=== PATIENT | male | born 1945 | race Hispanic/Latino ===

== ENCOUNTER 2016-12-12 08:31 | Inpatient (IN) | payer MEDICARE, BC ==
[2016-12-12 08:32] VITALS: BMI 28.5
--- NOTE | 2016-12-12 09:05 | ED PDOC ---
Arrival/HPI - General Chief Complaint: Dizziness/Lightheaded Time Seen by Provider: 12/12/16 08:46 Historian: Patient - History of Present Illness Narrative History of Present Illness (Text): 12/12/16 09:00 Neto Contreras is a 71 year old male, whose past medical history includes hydrocephalus, hypertension, and polycythemia, presents to the emergency department complaining of lightheadedness and dizziness since last night. Patient reports the symptom gets worse when he sits up from laying down. He notes having these symptoms in the past. Patient denies any headache, visual changes, weakness, or numbness. Patient denies other complaints. PMD: Dr. Manley Time/Duration: Other (last night ) Symptom Onset: Sudden Symptom Course: Unchanged Modifying Factors (Text): worse when sitting up from lying down Past Medical History - Provider Review Nursing Documentation Reviewed: Yes - Infectious Disease Hx of Infectious Diseases: None - Cardiac Hx Pacemaker: No - Neurological Other/Comment: Water on brain. Pt is unsure of what condition is. - Hematological/Oncological Hx Blood Disorders: Yes Other/Comment: poly cryhemia ruberex - Musculoskeletal/Rheumatological Hx Musculoskeletal Disorders: Yes - Genitourinary/Gynecological Hx Prostate Cancer: Yes (Radiation many years ago) - Psychiatric Hx Emotional Abuse: No Hx Physical Abuse: No Hx Substance Use: No - Anesthesia Hx Anesthesia Reactions: No Hx Malignant Hyperthermia: No - Suicidal Assessment Feels Threatened In Home Enviroment: No Family/Social History - Physician Review Nursing Documentation Reviewed: Yes Family/Social History: Unknown Family HX Smoking Status: Never Smoked Hx Alcohol Use: Yes (QUIT MANY YRS AGO) Hx Substance Use: No Allergies/Home Meds Allergies/Adverse Reactions: Allergies No Known Allergies Allergy (Verified 12/12/16 08:48) Home Medications: Home Meds Medication Instructions Recorded Confirmed Aspirin [Ecotrin] 81 mg PO DAILY 01/11/16 12/12/16 Ezetimibe [Zetia] 10 mg PO QPM 01/11/16 12/12/16 Metoprolol Tartrate [Lopressor] 100 mg PO QPM 01/11/16 12/12/16 Pravastatin Sodium 40 mg PO DAILY 01/11/16 12/12/16 Review of Systems - Review of Systems Constitutional: absent: Fevers Eyes: absent: Vision Changes Respiratory: absent: SOB Cardiovascular: absent: Chest Pain Gastrointestinal: absent: Abdominal Pain Neurological: Dizziness, Other (lightheadedness). absent: Headache Physical Exam Vital Signs Reviewed: Yes Vital Signs Temp Pulse Resp BP Pulse Ox 12/12/16 09:02 98.0 F 68 17 172/70 H 100 12/12/16 08:43 97.6 F 60 18 165/83 H 97 Temperature: Afebrile Blood Pressure: Hypertensive Pulse: Regular Respiratory Rate: Normal Appearance: Positive for: Well-Appearing, Non-Toxic, Comfortable Pain Distress: None Mental Status: Positive for: Alert and Oriented X 3 - Systems Exam Head: Present: Atraumatic, Normocephalic Pupils: Present: PERRL Extroacular Muscles: Present: EOMI Conjunctiva: Present: Normal Mouth: Present: Moist Mucous Membranes Neck: Present: Normal Range of Motion Respiratory/Chest: Present: Clear to Auscultation, Good Air Exchange. No: Respiratory Distress, Accessory Muscle Use Cardiovascular: Present: Regular Rate and Rhythm, Normal S1, S2. No: Murmurs Abdomen: Present: Normal Bowel Sounds. No: Tenderness, Distention, Peritoneal Signs Upper Extremity: Present: Normal Inspection. No: Cyanosis, Edema Lower Extremity: Present: Normal Inspection. No: Edema Neurological: Present: GCS=15, CN II-XII Intact, Speech Normal, Other (sitting him up makes the dizziness become worse) Skin: Present: Warm, Dry, Normal Color. No: Rashes Psychiatric: Present: Alert, Oriented x 3, Normal Insight, Normal Concentration Medical Decision Making ED Course and Treatment: 12/12/16 Impression: 71 year old male with normal physical exam. complaints of dizziness and lightheadedness become worse when sitting him up from lying down. Differential Diagnosis included but are not limited to: hydrocephalus vs. vertigo vs. anemia Plan: -- EKG -- Chest X-ray -- CT Head -- Labs -- Reassess and disposition Progress Notes: EKG: Ordered, reviewed, and independently interpreted the EKG. Rate : 65 BPM Rhythm : NSR Interpretation : PBC's. No changes from previous EKG. Comparison : 01/11/2016 12/12/16 09:[address]: Creator : Familia Drew MD COMPARISON: Head CT without contrast 08/11/2014. FINDINGS: HEMORRHAGE: No intracranial hemorrhage. BRAIN: There is no CT evidence of any type of brain infarction at this time. No cortical edema is evident. There is no focal mass effect and there is no suspicious extra-axial collection identified. VENTRICLES: However, a persistent diffuse ventricular dilatation pattern is appreciated suggesting probable normal pressure hydrocephalus or central atrophy. Clinically correlate. CALVARIUM: Unremarkable. PARANASAL SINUSES: Unremarkable as visualized. No significant inflammatory changes. MASTOID AIR CELLS: Unremarkable as visualized. No inflammatory changes. OTHER FINDINGS: None. IMPRESSION: Persistent ventriculomegaly is seen diffusely suggesting NPH or possible central hind atrophy. Clinically correlate further. No significant interval change compared to prior CT dated 08/11/2014. 12/12/16 09:45 Chest X-ray: Creator : Jael August V. COMPARISON: 01/11/2016 FINDINGS: LUNGS: No active pulmonary disease. PLEURA: No significant pleural effusion identified, no pneumothorax apparent. Possible dense left liberty diaphragmatic pleural based scarring and/or discoid atelectasis versus a calcified pleural plaque here CARDIOVASCULAR: Mild cardiomegaly OSSEOUS STRUCTURES: Thoracic spondylosis VISUALIZED UPPER ABDOMEN: Normal. OTHER FINDINGS: None. IMPRESSION: No dense pulmonary infiltrate. Left linear basal/left liberty diaphragmatic pleural based scarring and/or discoid atelectasis. Here, possible left liberty diaphragmatic calcified pleural plaque. Mild cardiomegaly 12/12/16 10:15 Patient feeling better but still having symptoms so will place on observation med/surg. Discussed case with PMD Dr. Kraus who came to evaluate patient and agrees to observation. Patient is a fall risk with no family support at home. - Lab Interpretations Lab Results: 12/12/16 09:00 12/12/16 09:00 Lab Results 12/12/16 09:44: Blood Type Pending, Antibody Screen Pending, BBK History Checked No verified bt 12/12/16 09:00: Sodium 141, Potassium 4.1, Chloride 104, Carbon Dioxide 24, Anion Gap 17, BUN 22 H, Creatinine 0.9, Est GFR ( Amer) > 60, Est GFR ( Non-Af Amer) > 60, Random Glucose 123 H, Calcium 9.2, Total Bilirubin 0.7, AST 24, ALT 32, Alkaline Phosphatase 62, Troponin I < 0.01, Total Protein 7.0, Albumin 4.2, Globulin 2.8, Albumin/Globulin Ratio 1.5 12/12/16 09:00: PT 10.8, INR 1.00, APTT 26.5 12/12/16 09:00: WBC 5.4, RBC 5.21, Hgb 16.3, Hct 45.8, MCV 87.9, MCH 31.3, MCHC 35.6, RDW 13.3, Plt Count 165, MPV 9.8, Gran % 74.9 H, Lymph % (Auto) 16.4 L, [place] % (Auto) 7.4 H, Eos % (Auto) 0.7 L, Baso % (Auto) 0.6, Gran # 4.02, Lymph # 0.9 L, [place] # 0.4, Eos # 0.0, Baso # 0.03 - RAD Interpretation Radiology Orders: 12/12/16 08:55 CHEST PORTABLE [RAD] Stat 12/12/16 08:56 HEAD W/O CONTRAST [CT] 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 I have reviewed the chart and agree that the record accurately reflects my personal performance of the history, physical exam, medical decision making, and the department course for this patient. I have also personally directed, reviewed, and agree with the discharge instructions and disposition. Disposition/Present on Arrival - Present on Arrival Any Indicators Present on Arrival: No History of DVT/PE: No History of Uncontrolled Diabetes: No Urinary Catheter: No History of Decub. Ulcer: No History Surgical Site Infection Following: None - Disposition Have Diagnosis and Disposition been Completed?: Yes Diagnosis: Dizziness Disposition: HOME/ ROUTINE Disposition Time: 10:16 Patient Plan: Observation Condition: FAIR Referrals: Indu Manley MD [Primary Care Provider] - Follow up with primary Forms: [employer] ([place])
[2016-12-12 09:25] LABS: BASO # 0.03 K/mm3 (0.0-2.0); BASO % 0.6 % (0.0-3.0); EOS % 0.7 % (1.5-5.0); GRAN # 4.02 (1.4-6.5); GRAN % 74.9 % (50.0-68.0); HEMATOCRIT 45.8 % (42.0-52.0); LYMPH # 0.9 (1.2-3.4); LYMPH % 16.4 % (22.0-35.0); MEAN CELL VOLUME 87.9 fl (80.0-105.0); MEAN CORPUSCULAR HEMOGLOBIN 31.3 pg (25.0-35.0); MEAN CORPUSCULAR HGB CONC 35.6 g/dl (31.0-37.0); MEAN PLATELET VOLUME 9.8 fl (7.0-11.0); MONO # 0.4 (0.1-0.6); MONO % 7.4 % (1.0-6.0); RED CELL DISTRIBUTION WIDTH 13.3 % (11.5-14.5); WHITE BLOOD COUNT 5.4 10^3/ul (4.5-11.0)
[2016-12-12 09:28] LABS: ALB/GLOB RATIO 1.5 (1.1-1.8); ALKALINE PHOSPHATASE 62 U/L (38-126); ALT/SGPT 32 U/L (7-56); AST/SGOT 24 U/L (17-59); BILIRUBIN,TOTAL 0.7 mg/dL (0.2-1.3); BLOOD UREA NITROGEN 22 mg/dL (7-21); CALCIUM 9.2 mg/dL (8.4-10.5); CARBON DIOXIDE 24 mmol/L (21-33); CHLORIDE 104 mmol/L (98-107); GFR AFRICAN-AMERICAN > 60; GLUCOSE,RANDOM 123 mg/dL (70-110); POTASSIUM 4.1 mmol/L (3.6-5.0); SODIUM 141 mmol/L (132-148)
--- NOTE | 2016-12-12 09:28 | CT ---
PROCEDURE: CT HEAD WITHOUT CONTRAST. HISTORY: lightheadedness/dizziness h/o hydroceph COMPARISON: Head CT without contrast 08/11/2014. TECHNIQUE: Axial computed tomography images were obtained through the head/brain without intravenous contrast. Radiation dose: Total exam DLP = 774.23 mGy-cm. This CT exam was performed using one or more of the following dose reduction techniques: Automated exposure control, adjustment of the mA and/or kV according to patient size, and/or use of iterative reconstruction technique. FINDINGS: HEMORRHAGE: No intracranial hemorrhage. BRAIN: There is no CT evidence of any type of brain infarction at this time. No cortical edema is evident. There is no focal mass effect and there is no suspicious extra-axial collection identified. VENTRICLES: However, a persistent diffuse ventricular dilatation pattern is appreciated suggesting probable normal pressure hydrocephalus or central atrophy. Clinically correlate. CALVARIUM: Unremarkable. PARANASAL SINUSES: Unremarkable as visualized. No significant inflammatory changes. MASTOID AIR CELLS: Unremarkable as visualized. No inflammatory changes. OTHER FINDINGS: None. IMPRESSION: Persistent ventriculomegaly is seen diffusely suggesting NPH or possible central hind atrophy. Clinically correlate further. No significant interval change compared to prior CT dated 08/11/2014.
[2016-12-12 09:31] LABS: PARTIAL THROMBOPLASTIN TIME 26.5 Seconds (23.7-30.8)
[2016-12-12 09:39] LABS: TROPONIN I < 0.01 ng/mL
--- NOTE | 2016-12-12 09:42 | RAD ---
HISTORY: lightheadedness COMPARISON: 01/11/2016 FINDINGS: LUNGS: No active pulmonary disease. PLEURA: No significant pleural effusion identified, no pneumothorax apparent. Possible dense left liberty diaphragmatic pleural based scarring and/or discoid atelectasis versus a calcified pleural plaque here CARDIOVASCULAR: Mild cardiomegaly OSSEOUS STRUCTURES: Thoracic spondylosis VISUALIZED UPPER ABDOMEN: Normal. OTHER FINDINGS: None. IMPRESSION: No dense pulmonary infiltrate. Left linear basal/left liberty diaphragmatic pleural based scarring and/or discoid atelectasis. Here, possible left liberty diaphragmatic calcified pleural plaque Mild cardiomegaly
--- NOTE | 2016-12-12 11:35 | CARD ---
APPROVED REPORT EKG Measurement Heart [id number] <Conclusion> Sinus rhythm with occasional premature ventricular complexes Otherwise normal ECG
--- NOTE | 2016-12-12 11:40 | CP.PCM.HP ---
History of Present Illness - History of Present Illness History of Present Illness: This is a 71 year old male with history of hypertension, hyperlipidemia, polycythemia vera and normal pressure hydrocephalus who presented to the Emergency Room with dizziness. Patient says he began feeling dizzy and lightheaded last night. When he woke up this morning, he was still feeling dizzy and lightheaded so he came to the ER. He denies numbness, tingling, weakness or slurred speech. Present on Admission - Present on Admission Any Indicators Present on Admission: No History of DVT/PE: No History of Uncontrolled Diabetes: No Urinary Catheter: No Decubitus Ulcer Present: No Review of Systems - Constitutional Constitutional: absent: Chills, Fever, Headache - EENT Nose/Mouth/Throat: absent: Nasal Congestion, Nasal Discharge, Hoarsness - Cardiovascular Cardiovascular: absent: Chest Pain, Diaphoresis, Dyspnea - Respiratory Respiratory: absent: Cough, Dyspnea, Wheezing - Gastrointestinal Gastrointestinal: Nausea. absent: Abdominal Pain, Diarrhea - Neurological Neurological: As Per HPI Past Patient History - Infectious Disease Hx of Infectious Diseases: None - Past Medical History & Family History Past Medical History?: Yes Past Family History: Reviewed and not pertinent - Past Social History Smoking Status: Never Smoked Alcohol: None Drugs: Denies Home Situation {Lives}: Alone - CARDIAC Hx Hypercholesterolemia: Yes Hx Hypertension: Yes Hx Pacemaker: No - NEUROLOGICAL Other/Comment: Normal pressure hydrocephalus - HEMATOLOGICAL/ONCOLOGICAL Hx Blood Disorders: Yes (Polycythemia Vera) Other/Comment: poly cryhemia ruberex - MUSCULOSKELETAL/RHEUMATOLOGICAL Hx Musculoskeletal Disorders: Yes Hx Arthritis: Yes - GENITOURINARY/GYNECOLOGICAL Hx Prostate Cancer: Yes (Radiation many years ago) - PSYCHIATRIC Hx Emotional Abuse: No Hx Physical Abuse: No Hx Substance Use: No - SURGICAL HISTORY Hx Surgeries: Yes (L FOOT BUNIONECTOMY, R EYE CATARACT;) Hx Herniorrhaphy: Yes - ANESTHESIA Hx Anesthesia Reactions: No Hx Malignant Hyperthermia: No Meds Allergies/Adverse Reactions: Allergies Allergy/AdvReac Type Severity Reaction Status Date / Time No Known Allergies Allergy Verified 12/12/16 08:48 Physical Exam - Constitutional Appears: No Acute Distress - Head Exam Head Exam: ATRAUMATIC, NORMOCEPHALIC - Neck Exam Neck exam: Positive for: Normal Inspection - Respiratory Exam Respiratory Exam: Clear to Auscultation Bilateral, NORMAL BREATHING PATTERN - Cardiovascular Exam Cardiovascular Exam: REGULAR RHYTHM, +S1, +S2 - GI/Abdominal Exam GI & Abdominal Exam: Normal Bowel Sounds, Soft. absent: Tenderness - Extremities Exam Extremities exam: Positive for: normal inspection - Neurological Exam Neurological exam: Alert, CN II-XII Intact, Oriented x3 Results - Vital Signs Recent Vital Signs: Last Vital Signs Temp 98.0 F 12/12/16 09:02 Pulse 68 12/12/16 09:02 Resp 17 12/12/16 09:02 BP 172/70 H 12/12/16 09:02 Pulse Ox 100 12/12/16 09:02 - Labs Result Diagrams: 12/12/16 09:00 12/12/16 09:00 Assessment & Plan - Assessment and Plan (Free Text) Assessment: Dizziness Polycythemia Vera HTN/HLP Normal pressure hydrocephalus Plan: Patient will be placed in observation for dizziness. He still complains of dizziness. Meclizine will be given and the patient will be observed for further dizziness or lightheadedness. continue Metoprolol for hypertension. continue Zetia for hyperlipidemia. Patient will be on a 2 gm sodium diet.
[2016-12-12] MEDS ORDERED: Pneumococcal 23-Valent Vaccine IM ONE (13:25)
--- NOTE | 2016-12-13 08:04 | CP.PCM.PN ---
Subjective - Date & Time of Evaluation Date of Evaluation: 12/13/16 Time of Evaluation: 07:35 - Subjective Subjective: Patient is seen this morning. He complains of dizziness. Denies numbness or tingling. Objective - Vital Signs/Intake and Output Vital Signs (last 24 hours): Temp Pulse Resp BP Pulse Ox 98 F 68 17 172/70 H 100 12/12/16 13:14 12/12/16 13:14 12/12/16 13:14 12/12/16 13:14 12/12/16 09:02 Intake and Output: 12/13/16 12/13/16 06:59 18:59 Intake Total 900 Output Total 650 Balance 250 - Medications Medications: Current Medications Aspirin (Ecotrin) 81 mg PO DAILY [facility] Ezetimibe (Zetia) 10 mg PO DAILY [facility] Meclizine HCl (Antivert) 25 mg PO TID [facility] Last Admin: 12/12/16 17:40 Dose: 25 mg Metoprolol Succinate (Toprol Xl) 100 mg PO BRK [facility] - Labs Labs: PT 10.8 Seconds (9.9-11.8) 12/12/16 09:00 INR 1.00 (0.93-1.08) 12/12/16 09:00 APTT 26.5 Seconds (23.7-30.8) 12/12/16 09:00 - Constitutional Appears: No Acute Distress - Head Exam Head Exam: ATRAUMATIC, NORMOCEPHALIC - Respiratory Exam Respiratory Exam: Clear to Ausculation Bilateral, NORMAL BREATHING PATTERN - Cardiovascular Exam Cardiovascular Exam: +S1, +S2 - GI/Abdominal Exam GI & Abdominal Exam: Soft, Normal Bowel Sounds. absent: Tenderness - Neurological Exam Neurological Exam: Alert, Awake, Oriented x3 Assessment and Plan - Assessment and Plan (Free Text) Assessment: Dizziness Normal pressure hydrocephalus HTN HLP Arthritis Polycythemia vera Plan: Patient still complaining of dizziness. Will check EEG, MRI Brain and order neurology consult with Dr. Oliver. continue Meclizine continue Metoprolol for hypertension. 2gm sodium diet
[2016-12-13] MEDS: Metoprolol Succinate 100 mg XL Tab PO SCH (08:09)
[2016-12-13 09:01] VITALS: RESP 20
[2016-12-13] MEDS ORDERED: Gadodiamide 287 MG/ML VIAL (15ML) IV ONE (09:08)
--- NOTE | 2016-12-13 11:10 | CP.PCM.CON ---
<Rebekah Donovan - Last Filed: 12/13/16 10:59> History of Present Illness - History of Present Illness History of Present Illness: Neurology Consult Note for Vladimir Desai PGY2 Reason for consult: Dizziness This is a 71YM with PMH normal pressure hydrocephalus, HTN, HLD, and polycythemia vera who complains of dizziness x 1 day. He reports on Saturday, he went out to dinner and came home and was sitting in his recliner. When he stood up he began to feel dizzy. He described it as lightheaded with the room spinning. He felt unsteady on his feet at the time. He did not fall or hit his head. He denies having any vision changes, numbness/tingling, headache, incontinence (urinary or bowel), weakness, CP, SOB, fever or chills. This has not happened before. He was given Meclizine in the hospital which relieves his symptoms. Patient denies any dizziness with certain head movements. He is very active and walks every day. Patient is very alert and A&O x 3. He has never seen a neurologist for his NPH, but denies having any trouble walking, urinary incontinence or confusion. PMH: normal pressure hydrocephalus, HTN, HLD, and polycythemia vera PSH: bilateral hernia repair 2016, cataract repair R eye Home meds: As per MAY All: NKDA SH: Denies EtOH, tobacco or drug use. Lives at a senior facility Review of Systems - Constitutional Constitutional: absent: Chills, Fever - EENT Eyes: absent: Change in Vision, Loss of Vision Ears: Dizziness. absent: Decreased Hearing, Disequilibrium Nose/Mouth/Throat: absent: Dysphagia, Odynophagia - Cardiovascular Cardiovascular: absent: Chest Pain - Respiratory Respiratory: absent: Cough, Dyspnea, Hemoptysis - Gastrointestinal Gastrointestinal: absent: Abdominal Pain, Change in Stool Character, Nausea, Vomiting - Genitourinary Genitourinary: absent: Change in Urinary Stream, Difficulty Urinating, Dysuria, Hematuria, Pyuria - Musculoskeletal Musculoskeletal: absent: Abnormal Gait, Back Pain, Myalgias, Numbness, Stiffness , Tingling - Integumentary Integumentary: absent: Change in Hair, Changing Lesions - Neurological Neurological: Dizziness, Vertigo. absent: Abnormal Gait, Abnormal Speech, Behavioral Changes, Confusion, Numbness, Frequent Falls, Loss of Vision, Sensory Deficit, Syncope, Weakness - Psychiatric Psychiatric: absent: Anxiety, Depression Past Patient History - Infectious Disease Hx of Infectious Diseases: None - Past Medical History & Family History Past Medical History?: Yes Past Family History: Reviewed and not pertinent - Past Social History Smoking Status: Never Smoked Alcohol: None Drugs: Denies Home Situation {Lives}: Alone, Other (senior facility ) - CARDIAC Hx Hypercholesterolemia: Yes Hx Hypertension: Yes Hx Pacemaker: No - NEUROLOGICAL Hx Neurological Disorder: Yes (stutters at times "when nervous") Other/Comment: Normal pressure hydrocephalus - HEENT Hx HEENT Problems: Yes (eyeglasses for reading and distance) Hx Cataracts: Yes (right eye sx, left eye not ready) - HEMATOLOGICAL/ONCOLOGICAL Hx Blood Disorders: Yes (Polycythemia rubra vera) Hx Chemotherapy: Yes (prostate "yrs ago" had radiation) - MUSCULOSKELETAL/RHEUMATOLOGICAL Hx Falls: No - GENITOURINARY/GYNECOLOGICAL Hx Prostate Cancer: Yes (Radiation many years ago) - PSYCHIATRIC Hx Substance Use: No - SURGICAL HISTORY Hx Surgeries: Yes (L FOOT BUNIONECTOMY, R EYE CATARACT;) Other/Comment: b/l inguinal hernia sx 01/2016, prostate bx, colonoscopy x3 - ANESTHESIA Hx Anesthesia Reactions: No Hx Malignant Hyperthermia: No Meds Allergies/Adverse Reactions: Allergies Allergy/AdvReac Type Severity Reaction Status Date / Time No Known Allergies Allergy Verified 12/12/16 08:48 - Medications Medications: Current Medications Aspirin (Ecotrin) 81 mg PO DAILY [facility] Last Admin: 12/13/16 09:41 Dose: 81 mg Ezetimibe (Zetia) 10 mg PO DAILY [facility] Meclizine HCl (Antivert) 25 mg PO TID [facility] Last Admin: 12/13/16 09:41 Dose: 25 mg Metoprolol Succinate (Toprol Xl) 100 mg PO BRK [facility] Last Admin: 12/13/16 08:09 Dose: 100 mg Physical Exam - Constitutional Appears: No Acute Distress - Head Exam Head Exam: ATRAUMATIC, NORMAL INSPECTION, NORMOCEPHALIC - Eye Exam Eye Exam: EOMI, Normal appearance, PERRL Pupil Exam: NORMAL ACCOMODATION, PERRL - ENT Exam ENT Exam: Mucous Membranes Moist, Normal Exam - Neck Exam Neck exam: Positive for: Normal Inspection - Respiratory Exam Respiratory Exam: Clear to Auscultation Bilateral, NORMAL BREATHING PATTERN. absent: Rales, Rhonchi, Wheezes - Cardiovascular Exam Cardiovascular Exam: REGULAR RHYTHM, +S1, +S2. absent: Gallop, Rubs, Systolic Murmur - GI/Abdominal Exam GI & Abdominal Exam: Normal Bowel Sounds, Soft. absent: Guarding, Rebound, Rigid, Tenderness - Extremities Exam Extremities exam: Positive for: normal inspection. Negative for: calf tenderness, pedal edema - Neurological Exam Neurological exam: Alert, CN II-XII Intact, Normal Gait, Oriented x3 - Psychiatric Exam Psychiatric exam: Normal Affect, Normal Mood - Skin Skin Exam: Dry, Intact, Normal Color, Warm Results - Vital Signs Recent Vital Signs: Last Vital Signs Temp 97.6 F 12/13/16 09:00 Pulse 52 L 12/13/16 09:00 Resp 20 12/13/16 09:00 BP 157/78 H 12/13/16 09:00 Pulse Ox 97 12/13/16 09:00 - Labs Result Diagrams: 12/12/16 09:00 12/12/16 09:00 Assessment & Plan - Assessment and Plan (Free Text) Assessment: This is a 71YM with PMH normal pressure hydrocephalus, HTN, HLD, and polycythemia vera who complains of dizziness x 1 day that is associated with sitting up from standing that is relieved by Meclizine. This can be secondary to orthostatic hypotension versus vertigo. It is unlikely this is secondary to NPH because there is no evidence of confusion, gait dysfunction or urinary incontinence. Head CT showed persistent ventriculomegaly, but no change when compared to previous imaging in 2015. Plan: - Will review brain MRI. - Meclizine prn - Will obtain orthostatics - Physical therapy - Vestibular therapy Case seen, discussed and reviewed with attending, Dr. Oliver. Vladimir Donovan PGY2 - Date & Time Date: 12/13/16 Time: 11:20 <Valentín Oliver - Last Filed: 12/13/16 12:08> Meds - Medications Medications: Current Medications Aspirin (Ecotrin) 81 mg PO DAILY [facility] Last Admin: 12/13/16 09:41 Dose: 81 mg Ezetimibe (Zetia) 10 mg PO DAILY [facility] Meclizine HCl (Antivert) 25 mg PO TID [facility] Last Admin: 12/13/16 09:41 Dose: 25 mg Metoprolol Succinate (Toprol Xl) 100 mg PO BRK [facility] Last Admin: 12/13/16 08:09 Dose: 100 mg Results - Vital Signs Recent Vital Signs: Last Vital Signs Temp 97.6 F 12/13/16 09:00 Pulse 52 L 12/13/16 09:00 Resp 20 12/13/16 09:00 BP 157/78 H 12/13/16 09:00 Pulse Ox 97 12/13/16 09:00 - Labs Result Diagrams: 12/12/16 09:00 12/12/16 09:00 Attending/Attestation - Attestation I have personally seen and examined this patient.: Yes I have fully participated in the care of the patient.: Yes I have reviewed all pertinent clinical information: Yes
--- NOTE | 2016-12-13 15:06 | MRI ---
PROCEDURE: MRI BRAIN WITH AND WITHOUT CONTRAST HISTORY: dizziness COMPARISON: Head CT 12/12/2016 as well as brain MRI 08/30/2014. TECHNIQUE: Multiplanar, multisequence MR images of the brain were obtained with and without intravenous contrast enhancement. FINDINGS: HEMORRHAGE: None DWI: No evidence of an acute or early subacute infarction. BRAIN PARENCHYMA: Age related neuro degenerate changes are again appreciated manifest by diffuse cerebral atrophy and limited chronic microangiopathy. The ventricular system remains diffusely dilated suspicious for potential communicating hydrocephalus. Normal changes appreciated in the overall ventricular volume. ENHANCEMENT: No abnormal intracranial enhancement. VENTRICLES: As discussed in parenchyma section above. CRANIUM: Unremarkable. ORBITS: Grossly unremarkable. PARANASAL SINUSES/MASTOIDS: Clear VASCULAR SYSTEM: Skull base flow voids intact. OTHER FINDINGS: None . IMPRESSION: 1. A dilated ventricular system is again seen diffusely suggesting normal pressure hydrocephalus or central atrophy. 2. No abnormal intracranial enhancement. 3. Stable age related neuro degenerate changes are identified.
[2016-12-13 17:46] VITALS: BP 178/99; PULSE 58; TEMP 97; O2SAT 98
--- NOTE | 2016-12-14 06:48 | CP.PCM.PN ---
<Rebekah Donovan - Last Filed: 12/14/16 11:12> Subjective - Date & Time of Evaluation Date of Evaluation: 12/14/16 Time of Evaluation: 06:45 - Subjective Subjective: Neurology Progress Note for Vladimir Desai PGY2 Patient seen and examined at bedside. As per nursing, there were no acute overnight events. Patient feels well today. He reports his dizziness has improved. He denies CP, SOB, vision changes, weakness, vertigo, n/v/d, numbness/ tingling. Objective - Vital Signs/Intake and Output Vital Signs (last 24 hours): Temp Pulse Resp BP Pulse Ox 97 F L 58 L 20 178/99 H 98 12/13/16 17:45 12/13/16 17:45 12/13/16 17:45 12/13/16 17:45 12/13/16 17:45 Intake and Output: 12/13/16 12/14/16 18:59 06:59 Intake Total 540 Balance 540 - Medications Medications: Current Medications Aspirin (Ecotrin) 81 mg PO DAILY [facility] Last Admin: 12/13/16 09:41 Dose: 81 mg Atorvastatin Calcium (Lipitor) 40 mg PO DIN [facility] Last Admin: 12/13/16 17:11 Dose: 40 mg Ezetimibe (Zetia) 10 mg PO DAILY [facility] Last Admin: 12/13/16 17:11 Dose: 10 mg Meclizine HCl (Antivert) 25 mg PO TID [facility] Last Admin: 12/13/16 17:12 Dose: 25 mg Metoprolol Succinate (Toprol Xl) 100 mg PO BRK [facility] Last Admin: 12/13/16 08:09 Dose: 100 mg - Labs Labs: PT 10.8 Seconds (9.9-11.8) 12/12/16 09:00 INR 1.00 (0.93-1.08) 12/12/16 09:00 APTT 26.5 Seconds (23.7-30.8) 12/12/16 09:00 - Constitutional Appears: No Acute Distress - Head Exam Head Exam: ATRAUMATIC, NORMAL INSPECTION, NORMOCEPHALIC - Eye Exam Eye Exam: EOMI, Normal appearance, PERRL Pupil Exam: NORMAL ACCOMODATION, PERRL - ENT Exam ENT Exam: Mucous Membranes Moist - Neck Exam Neck Exam: Full ROM - Respiratory Exam Respiratory Exam: Clear to Ausculation Bilateral, NORMAL BREATHING PATTERN. absent: Rales, Rhonchi, Wheezes - Cardiovascular Exam Cardiovascular Exam: REGULAR RHYTHM, +S1, +S2. absent: Gallop, Rubs, Murmur - GI/Abdominal Exam GI & Abdominal Exam: Soft, Normal Bowel Sounds. absent: Rigid, Tenderness, Mass , Rebound - Extremities Exam Extremities Exam: Normal Inspection. absent: Calf Tenderness, Pedal Edema - Neurological Exam Neurological Exam: Alert, Awake, CN II-XII Intact, Normal Gait, Oriented x3 Neuro motor strength exam: Left Upper Extremity: 5, Right Upper Extremity: 5, Left Lower Extremity: 5, Right Lower Extremity: 5 - Psychiatric Exam Psychiatric exam: Normal Affect, Normal Mood - Skin Skin Exam: Dry, Intact, Normal Color, Warm Assessment and Plan - Assessment and Plan (Free Text) Assessment: This is a 71YM with PMH normal pressure hydrocephalus, HTN, HLD, and polycythemia vera who complains of dizziness x 1 day that is associated with sitting up from standing that is relieved by Meclizine. This can be secondary to orthostatic hypotension versus vertigo. It is unlikely this is secondary to NPH because there is no evidence of confusion, gait dysfunction or urinary incontinence. Head CT showed persistent ventriculomegaly, but no change when compared to previous imaging in 2015. MRI was noted to showed diffusely dilated ventricular system suggesting NPH versus central atrophy. Orthostatic vitals noted to be negative. Plan: - Neurosurgery consulted - Continue Meclizine prn - Continue Physical therapy as well as vestibular therapy as outpatient Case seen, discussed and reviewed with attending, Dr. Oliver. Vladimir Donovan PGY2 <Valentín Oliver - Last Filed: 12/14/16 13:08> Objective - Vital Signs/Intake and Output Vital Signs (last 24 hours): Temp Pulse Resp BP Pulse Ox 97 F L 58 L 20 178/99 H 98 12/13/16 17:45 12/13/16 17:45 12/13/16 17:45 12/13/16 17:45 12/13/16 17:45 Intake and Output: 12/14/16 12/14/16 06:59 18:59 Intake Total 540 Balance 540 - Medications Medications: Current Medications Amlodipine Besylate (Norvasc) 5 mg PO DAILY [facility] Last Admin: 12/14/16 09:18 Dose: 5 mg Aspirin (Ecotrin) 81 mg PO DAILY [facility] Last Admin: 12/14/16 09:18 Dose: 81 mg Atorvastatin Calcium (Lipitor) 40 mg PO DIN [facility] Last Admin: 12/13/16 17:11 Dose: 40 mg Ezetimibe (Zetia) 10 mg PO DAILY [facility] Last Admin: 12/14/16 09:18 Dose: 10 mg Meclizine HCl (Antivert) 25 mg PO TID PRN PRN Reason: Dizziness Metoprolol Tartrate (Lopressor) 50 mg PO BRK [facility] Last Admin: 12/14/16 09:18 Dose: 50 mg - Labs Labs: PT 10.8 Seconds (9.9-11.8) 12/12/16 09:00 INR 1.00 (0.93-1.08) 12/12/16 09:00 APTT 26.5 Seconds (23.7-30.8) 12/12/16 09:00 Attending/Attestation - Attestation I have personally seen and examined this patient.: Yes I have fully participated in the care of the patient.: Yes I have reviewed all pertinent clinical information, including history, physical exam and plan: Yes
[2016-12-14] MEDS: Metoprolol Succinate 100 mg XL Tab PO SCH (09:06)
--- NOTE | 2016-12-14 12:46 | CP.PCM.CON ---
History of Present Illness - History of Present Illness History of Present Illness: pt has no gait dysfunctiom no urinary incontinence mild ventriculomegaly , prob atrophy related- unchanged rfrom 2015 would not rec csf diversion Past Patient History - Infectious Disease Hx of Infectious Diseases: None - Past Medical History & Family History Past Medical History?: Yes Past Family History: Reviewed and not pertinent - Past Social History Smoking Status: Never Smoked Alcohol: None Drugs: Denies Home Situation {Lives}: Alone, Other (senior facility ) - CARDIAC Hx Hypercholesterolemia: Yes Hx Hypertension: Yes Hx Pacemaker: No - NEUROLOGICAL Hx Neurological Disorder: Yes (stutters at times "when nervous") Other/Comment: Normal pressure hydrocephalus - HEENT Hx HEENT Problems: Yes (eyeglasses for reading and distance) Hx Cataracts: Yes (right eye sx, left eye not ready) - HEMATOLOGICAL/ONCOLOGICAL Hx Blood Disorders: Yes (Polycythemia rubra vera) Hx Chemotherapy: Yes (prostate "yrs ago" had radiation) - MUSCULOSKELETAL/RHEUMATOLOGICAL Hx Falls: No - GENITOURINARY/GYNECOLOGICAL Hx Prostate Cancer: Yes (Radiation many years ago) - PSYCHIATRIC Hx Substance Use: No - SURGICAL HISTORY Hx Surgeries: Yes (L FOOT BUNIONECTOMY, R EYE CATARACT;) Other/Comment: b/l inguinal hernia sx 01/2016, prostate bx, colonoscopy x3 - ANESTHESIA Hx Anesthesia Reactions: No Hx Malignant Hyperthermia: No Meds Allergies/Adverse Reactions: Allergies Allergy/AdvReac Type Severity Reaction Status Date / Time No Known Allergies Allergy Verified 12/12/16 08:48 - Medications Medications: Current Medications Amlodipine Besylate (Norvasc) 5 mg PO DAILY [facility] Last Admin: 12/14/16 09:18 Dose: 5 mg Aspirin (Ecotrin) 81 mg PO DAILY [facility] Last Admin: 12/14/16 09:18 Dose: 81 mg Atorvastatin Calcium (Lipitor) 40 mg PO DIN [facility] Last Admin: 12/13/16 17:11 Dose: 40 mg Ezetimibe (Zetia) 10 mg PO DAILY [facility] Last Admin: 12/14/16 09:18 Dose: 10 mg Meclizine HCl (Antivert) 25 mg PO TID PRN PRN Reason: Dizziness Metoprolol Tartrate (Lopressor) 50 mg PO BRK [facility] Last Admin: 12/14/16 09:18 Dose: 50 mg Results - Vital Signs Recent Vital Signs: Last Vital Signs Temp 97 F L 12/13/16 17:45 Pulse 58 L 12/13/16 17:45 Resp 20 12/13/16 17:45 BP 178/99 H 12/13/16 17:45 Pulse Ox 98 12/13/16 17:45 - Labs Result Diagrams: 12/12/16 09:00 12/12/16 09:00
--- NOTE | 2016-12-14 13:39 | PN ---
DATE: SUBJECTIVE: The patient is seen in the [facility] in [place], admitted with severe dizziness and the patient had some unstable gait at that time. Just 2 days ago, the patient was admitted in the hospital for further evaluation and treatment. The patient has past history of hypertension and hyperlipidemia. The patient has history of normal pressure hydrocephalus. The patient also has history of secondary polycythemia, for which the patient has bloodletting frequently as needed. The patient is seen this morning, seem to be comfortable and he has no evidence of any dizziness while sitting in the bed. We will get the patient to ambulate and if his condition is stable, the patient will be able to be discharged and go home. PHYSICAL EXAMINATION VITAL SIGNS: This morning, the pulse is 58, blood pressure is 178/99, respirations are 20, O2 saturation 98%, and temperature 97. HEENT: The patient's head is normocephalic. NECK: On clinical examination of the patient's neck, the thyroid is not enlarged. No lymphadenopathy in the neck. Carotid pulses are present bilaterally. HEART: NSR. S1 and S2 present. ABDOMEN: Soft. Liver and spleen not palpable. CENTRAL NERVOUS SYSTEM: The patient is conscious, rational, oriented. The patient's cranial nerves are intact from II to XII. Sensory hearing is good. The patient's cerebellar functions are within normal limits. Motor and sensory functions and reflexes are within normal limits. LABORATORY DATA: The patient's blood work, hemoglobin is 16.3. The patient has a history of polycythemia as mentioned earlier. The patient is under the care of Dr. Gallegos, his oncologist, who takes his blood frequently in order to keep his hemoglobin under the level. The patient's chemistry, blood sugar is 123, , BUN is 22. All other chemical parameters are within normal limits. PLAN: The patient is able to ambulate well with help, but we are going to give the patient independence and if he feels stable and able to walk around and feel comfortable, then the patient can go home with Antivert 12.5 mg three times a day for dizziness. The consideration of neurosurgical evaluation is abandoned at this time. The patient I do not think needs to have a ventriculoperitoneal shunt placed at this time. If there is a need for any further management, we will refer the patient to the appropriate wireless sales consultant after discharge. His prognosis is clinically good at this time. He is stable with all his medications. His blood pressure is well controlled. His medications consist of Antivert three times a day and Lipitor which is 40 mg. When the patient goes home, he will take simvastatin and pravastatin that he was on. He will be on metoprolol 100 mg once daily. He is on Zetia 10 mg daily. The patient's medications will be continued. The patient has an EKG done in the hospital. The heart rate is 65 and the patient's QT interval is within normal range. Marisel Manley MD
[2016-12-14] MEDS ORDERED: Non Formulary Medication (Metoprolol Tartrate [Lopressor] 100 MG) PO SCH (18:00)
[2016-12-14] MEDS ORDERED: PRAVASTATIN SODIUM 40 MG PO SCH (22:00)
--- NOTE | 2016-12-15 08:28 | CARD ---
APPROVED REPORT EKG Measurement Heart [id number] <Conclusion> Sinus bradycardia Otherwise normal ECG No PVC's c/w ECG 12/12/16
--- NOTE | 2016-12-16 10:28 | DS ---
HISTORY AND HOSPITAL COURSE: This is a 71-year-old male with a history of hypertension, hyperlipidemia with polycythemia vera and normal pressure hydrocephalus who presented to the emergency room of [facility] with dizziness. The patient stated that he had felt dizzy and lightheaded since the previous night. He woke up in the morning and still felt dizzy, so he came to the emergency room. He denied numbness, tingling, weakness or slurred speech. The patient was placed on the general medical floor after dizziness. He was started on meclizine 25 mg three times a day. He was continued on his metoprolol for blood pressure, Zetia and statin for hyperlipidemia and 2 g sodium diet. The next day the patient continued to have dizziness, so an MRI of the brain was ordered as well as an EEG and neurology consult with Dr. Oliver. MRI showed age-related neurodegenerative changes, diffuse cerebral atrophy and diffusely dilated ventricular systems, suspicious for communicating hydrocephalus. There was no change from previous MRI. The patient was also seen by neurosurgery who did not recommend any surgery. By the next day, the patient's dizziness was resolved. He was discharged home in stable condition. DISCHARGE DIAGNOSES: Dizziness, hydrocephalus, hypertension, hyperlipidemia and polycythemia vera. DISCHARGE MEDICATIONS: Metoprolol 100 mg once a day, pravastatin 40 mg at night, Zetia 10 mg daily, aspirin 81 mg daily, Antivert 25 mg three times a day as needed for dizziness. FOLLOWUP: The patient will follow up in the office in 1 week. Chelly Manley MD
== END 2016-12-14 16:15 | disposition home or self-care (01) | DRG 312 ==
LOC: ED 08:31 → ERH 10:12 → 3RSO 14:01 → OBSVTOIN 12-13 08:05
PROVIDERS: ADMIT Internal Medicine; ATTEND Internal Medicine
DX: I95.1 Orthostatic hypotension (principal); G91.2 (Idiopathic) normal pressure hydrocephalus; D45 Polycythemia vera; R42 Dizziness and giddiness; I10 Essential (primary) hypertension; G93.89 Other specified disorders of brain; E78.00 Pure hypercholesterolemia, unspecified; M19.90 Unspecified osteoarthritis, unspecified site; Z85.46 Personal history of malignant neoplasm of prostate; Z91.81 History of falling; Z79.82 Long term (current) use of aspirin

== ENCOUNTER 2018-06-01 10:45 | Inpatient (IN) | payer MEDICARE, BC ==
[2018-06-01 10:49] VITALS: BMI 28.8
[2018-06-01] MEDS ORDERED: Sodium Chloride 0.9% 500 ML IV STA (10:58)
--- NOTE | 2018-06-01 11:02 | ED PDOC ---
Arrival/HPI - General Chief Complaint: Dizziness/Lightheaded Time Seen by Provider: 06/01/18 10:48 Historian: Patient - History of Present Illness Narrative History of Present Illness (Text): 06/01/18 11:00 A 72 year old male, whose past medical history includes hydrocephalus, hypertension, and polycythemia, presents to the emergency department complaining of dizziness upon waking up this morning. He describes symptom as "room-spinning sensation." Patient reports he's had a similar episode 18 months ago and was diagnosed with vertigo. He stated he ate a ham sandwich this morning and began having nausea as well. Patient denies any chest pain, shortness of breath, vomiting, or any other complaints at this time. Denies any history of smoking/drinking. Time/Duration: Other (this morning) Symptom Onset: Sudden Symptom Course: Unchanged Associated Symptoms (Text): 06/01/18 11:08 Patient woke up this morning and when he got out of bed became dizzy which he described as a spinning sensation previous to similar vertigo approximately 18 months ago. He had some nausea after eating a ham sandwich, but no vomiting. No headache. No chest pain palpitations or dyspnea. No abdominal pain. He appears comfortable. Past Medical History - Provider Review Nursing Documentation Reviewed: Yes - Infectious Disease Hx of Infectious Diseases: None - Cardiac Hx Hypertension: Yes - Neurological Hx Paralysis: No - HEENT Hx HEENT Disorder: Yes (eyeglasses for reading and distance) Hx Cataracts: Yes (right eye sx, left eye not ready) - Hematological/Oncological Hx Blood Transfusions: No Hx Blood Transfusion Reaction: No - Musculoskeletal/Rheumatological Hx Musculoskeletal Disorders: Yes - Genitourinary/Gynecological Hx Prostate Cancer: Yes (Radiation many years ago) - Psychiatric Hx Emotional Abuse: No Hx Physical Abuse: No Hx Substance Use: No - Surgical History Other/Comment: b/l inguinal hernia sx 01/2016, prostate bx, colonoscopy x3 - Anesthesia Hx Anesthesia Reactions: No Hx Malignant Hyperthermia: No - Suicidal Assessment Feels Threatened In Home Enviroment: No Family/Social History - Physician Review Nursing Documentation Reviewed: Yes Family/Social History: No Known Family HX Smoking Status: Never Smoked Hx Alcohol Use: No (quit many yrs ago) Hx Substance Use: No Allergies/Home Meds Allergies/Adverse Reactions: Allergies No Known Allergies Allergy (Verified 09/27/17 08:48) Home Medications: Home Meds Medication Instructions Recorded Confirmed Aspirin [Ecotrin] 81 mg PO DAILY 01/11/16 06/01/18 Ezetimibe [Zetia] 10 mg PO QPM 01/11/16 06/01/18 Metoprolol Tartrate [Lopressor] 100 mg PO QPM 01/11/16 06/01/18 Pravastatin Sodium 40 mg PO HS 01/11/16 06/01/18 Vitamin D 77617 50,000 iu PO QWK 06/01/18 06/01/18 Review of Systems - Physician Review All systems were reviewed & negative as marked: Yes - Review of Systems Constitutional: absent: Fatigue, Fevers Respiratory: absent: SOB Cardiovascular: absent: Chest Pain, Palpitations, Syncope Gastrointestinal: Nausea. absent: Abdominal Pain, Vomiting Neurological: Dizziness (described by patient as "room-spinning" sensation.). absent: Headache, Focal Weakness, Gait Changes Physical Exam Vital Signs Reviewed: Yes Vital Signs Pulse Resp BP Pulse Ox 06/01/18 10:52 50 L 18 158/82 H 95 Blood Pressure: Hypertensive Pulse: Bradycardic Respiratory Rate: Normal Appearance: Positive for: Well-Appearing, Non-Toxic, Comfortable Pain Distress: None Mental Status: Positive for: Alert and Oriented X 3 - Systems Exam Head: Present: Atraumatic, Normocephalic Pupils: Present: PERRL Extroacular Muscles: Present: EOMI Conjunctiva: Present: Normal Ears: Present: NORMAL TM, Normal Canal. No: Erythema, TM Bulging Mouth: Present: Moist Mucous Membranes Pharnyx: No: ERYTHEMA, EXUDATE, TONSILS ENLARGED Neck: Present: Normal Range of Motion Respiratory/Chest: Present: Clear to Auscultation, Good Air Exchange. No: Respiratory Distress, Accessory Muscle Use Cardiovascular: Present: Regular Rate and Rhythm, Normal S1, S2. No: Murmurs Abdomen: No: Tenderness, Distention, Peritoneal Signs, Rebound, Guarding Back: Present: Normal Inspection Upper Extremity: Present: Normal Inspection. No: Cyanosis, Edema Lower Extremity: Present: Normal Inspection. No: Edema Neurological: Present: GCS=15, CN II-XII Intact, Speech Normal, Motor Func Grossly Intact, Normal Sensory Function, Normal Cerebellar Funct Skin: Present: Warm, Dry, Normal Color. No: Rashes Psychiatric: Present: Alert, Oriented x 3, Normal Insight, Normal Concentration Medical Decision Making ED Course and Treatment: 06/01/18 11:02 Impression: 72 year old male with dizziness and nausea. No acute findings on examination. Plan: -- EKG -- Head CT -- Labs -- Antivert -- IV Fluids -- Zofran Prior Visits: Patient was last seen here in the emergency department on 12/12/2016 for lightheadedness and dizziness. Patient was discharged home. Progress Notes: 06/01/18 11:10 EKG shows sinus bradycardia rate approximately [address] or T wave changes. 06/01/18 12:31 Workup is unremarkable. Patient states that he is still dizzy and does not want to go home as he lives at home alone. Observation arrangements will be made for him. - RAD Interpretation Radiology Orders: 06/01/18 10:58 HEAD W/O CONTRAST [CT] Stat CT scan of the head as read by the radiologist showed stable ventricular dilatation, otherwise unremarkable. Pediatric Social Worker: Radiologist - Scribe Statement The provider has reviewed the documentation as recorded by the Scribe Noah Barrera All medical record entries made by the Scribe were at my direction and personally dictated by me. I have reviewed the chart and agree that the record accurately reflects my personal performance of the history, physical exam, medical decision making, and the department course for this patient. I have also personally directed, reviewed, and agree with the discharge instructions and disposition. Disposition/Present on Arrival - Present on Arrival Any Indicators Present on Arrival: No History of DVT/PE: No History of Uncontrolled Diabetes: No Urinary Catheter: No History of Decub. Ulcer: No History Surgical Site Infection Following: None - Disposition Have Diagnosis and Disposition been Completed?: Yes Diagnosis: Dizziness, Bradycardia, Dehydration Disposition: HOSPITALIZED Disposition Time: 12:37 Patient Plan: Observation, Telemetry Condition: GOOD Referrals: Indu Manley MD [Primary Care Provider] - Follow up with primary Forms: [employer] (Maltese)
[2018-06-01 11:21] LABS: BASO # 0.02 K/mm3 (0.0-2.0); BASO % 0.3 % (0.0-3.0); EOS # 0.1 (0.0-0.7); EOS % 0.9 % (1.5-5.0); HEMOGLOBIN 13.9 g/dL (14.0-18.0); LYMPH # 0.8 (1.2-3.4); MEAN CELL VOLUME 85.4 fl (80.0-105.0); MEAN CORPUSCULAR HEMOGLOBIN 27.8 pg (25.0-35.0); MEAN CORPUSCULAR HGB CONC 32.6 g/dl (31.0-37.0); MEAN PLATELET VOLUME 10.1 fl (7.0-11.0); MONO # 0.4 (0.1-0.6); RED CELL DISTRIBUTION WIDTH 13.8 % (11.5-14.5); WHITE BLOOD COUNT 6.4 10^3/uL (4.5-11.0)
[2018-06-01 11:30] LABS: ALB/GLOB RATIO 1.1 (1.1-1.8); ALBUMIN 3.9 g/dL (3.0-4.8); ALT/SGPT 22 U/L (7-56); AST/SGOT 24 U/L (17-59); BLOOD UREA NITROGEN 28 mg/dL (7-21); CALCIUM 9.4 mg/dL (8.4-10.5); GFR NON-AFRICAN AMERICAN > 60; PARTIAL THROMBOPLASTIN TIME 33.1 Seconds (26.9-38.3); PROTHROMBIN TIME 11.3 SECONDS (9.4-12.5)
[2018-06-01 11:42] LABS: TROPONIN I < 0.01 ng/mL
--- NOTE | 2018-06-01 11:50 | CT ---
Date of service: 06/01/2018 PROCEDURE: CT HEAD WITHOUT CONTRAST. HISTORY: Dizziness COMPARISON: 12/12/2016 CT head. 12/13/2016 MRI brain TECHNIQUE: Axial computed tomography images were obtained through the head/brain without intravenous contrast. Supplemental Coronal and Sagittal projections created and reviewed. Radiation dose: Total exam DLP = 998.18 mGy-cm. This CT exam was performed using one or more of the following dose reduction techniques: Automated exposure control, adjustment of the mA and/or kV according to patient size, and/or use of iterative reconstruction technique. FINDINGS: HEMORRHAGE: No intracranial hemorrhage. BRAIN: No mass effect or edema. No atrophy or chronic microvascular ischemic changes. VENTRICLES: Stable ventricular dilatation. CALVARIUM: Unremarkable. PARANASAL SINUSES: Unremarkable as visualized. No significant inflammatory changes. MASTOID AIR CELLS: Unremarkable as visualized. No inflammatory changes. OTHER FINDINGS: None. IMPRESSION: Stable ventricular dilatation. The entire system is dilated likely related to normal pressure hydrocephalus. No obstructing lesions identified. No acute intracranial abnormalities. Overall, no interval change.
--- NOTE | 2018-06-01 15:24 | CARD ---
APPROVED REPORT Date of service: 06/01/2018 EKG Measurement Heart [id number] MA [id number] <Conclusion> Marked sinus bradycardia Abnormal ECG
--- NOTE | 2018-06-01 22:59 | HP ---
DATE OF EXAM: 06/01/2018 HISTORY OF PRESENT ILLNESS: The patient is seen in the Emergency Room [facility] in [place]. The patient had been evaluated by the emergency room physician. The patient presented with symptoms of severe dizziness, a tendency to fall and spin. The patient denies any nausea or vomiting. Denies any headache. The patient has no history of trauma. The patient has had symptoms in the past for evaluation, the patient had diagnosis of normal pressure hydrocephalus. PAST MEDICAL HISTORY: Significant that he has history of inguinal hernia surgery, prostate surgery, and medical treatment for carcinoma of prostate. The patient had treatment for polycythemia secondary by bloodletting. PAST SURGICAL HISTORY: The patient has no surgical history other than for the biopsy for prostate and hernia surgery. ALLERGIES: THE PATIENT HAS NO KNOWN ALLERGIES TO MEDICATIONS. PHYSICAL EXAMINATION: GENERAL: The patient is lying down. He seems comfortable when he is in lying position. He said he tried to get up to urinate and he felt dizzy; however, the patient is admitted for observation and treatment in the [facility], telemetry facility. VITAL SIGNS: The blood pressure is ranging between 150 and 160 systolic and diastolic is within normal range. HEENT: Head is normocephalic. NECK: Thyroid is not enlarged. Carotid pulses are present bilaterally. There are no lymph nodes in the neck. LUNGS: Trachea is central. Breath sounds are vesicular. No adventitious sounds. HEART: Normal sinus rhythm. S1 and S2 present, sinus bradycardia. ABDOMEN: Soft. Liver and spleen not palpable. CENTRAL NERVOUS SYSTEM: The patient's cranial nerves are intact from II through XII. The patient's cerebellar neurological functions cannot be assessed, the patient is feeling dizzy. The patient's sensory and motor functions seems to be within normal range, but the patient complains of sensory symptoms in both of his legs. He says he has burning sensation with unusual discomfort. The patient also has stammering speech, this is being present for many years. LABORATORY DATA: Examination of the blood work done in the emergency room, the chemistries are blood sugar of 131 is random. The patient's BUN is 28, creatinine 1, and all other parameters are within normal range. Troponin is less than 0.01. The patient's CBC, the hemoglobin is 13.9, which is a good number for him. He has his blood taken out periodically for polycythemia. His EKG shows sinus bradycardia. MEDICATIONS The patient's medications consists of Zetia and Lipitor. The patient also gets metoprolol 100 mg once a day. We will decrease the dose of metoprolol to 50 mg once a day. ASSESSMENT AND PLAN: We will have a neurologic evaluation. While the patient is here, he probably needs to be evaluated for symptoms of dizziness and also peripheral neuropathic symptoms. We will have Dr. Oliver, the neurologist, who knows him who will see the patient. The patient's diet will be heart-healthy diet, 2 g sodium and the patient will be given privileges to go to the bathroom with help; otherwise, there are no restrictions. The patient is not allowed to ambulate on his own. We will follow up. Marisel Manley MD
--- NOTE | 2018-06-02 00:27 | CON ---
DATE: 06/01/2018 HISTORY OF PRESENT ILLNESS: This is a 72-year-old male with past medical history of hydrocephalus, hypertension and polycythemia, who came to the emergency room with dizziness upon waking up in the morning with room spinning sensation and similar episode occurred 18 months ago. The patient was diagnosed with vertigo. He stated he had eaten a sandwich this morning and began with nausea. Denies any shortness of breath. No nausea. No vomiting. This morning when he got up out of the bed became very dizzy with spinning sensation. PAST MEDICAL HISTORY: As above. SOCIAL HISTORY: Does not smoke. Does not drink. ALLERGIES: NO KNOWN DRUG ALLERGIES. HOME MEDICATIONS: Aspirin, Zetia, Lopressor, and vitamin D. REVIEW OF SYSTEMS: A 10-point review of system was negative. PHYSICAL EXAMINATION NEUROLOGIC: The patient is alert, awake, and orientated x3. No aphasia. Cranial nerves II through XII were tested. Pupils reactive. EOM intact. Visual field full. No facial asymmetry. Tongue midline. Motor examination; moves all the extremities equally. Tone normal. Deep tendon reflexes 1+, both plantars are downgoing. Sensory appears intact. Cerebellar gait normal. IMPRESSION: Vertigo, rule out vertebrobasilar ischemia and also complaining of numbness, tingling of both the lower extremities, possibly neuropathy. We will start him on gabapentin 300 mg p.o. at bedtime. CAT scan of the head is normal. Angel Oliver MD
[2018-06-02 07:20] LABS: BLOOD UREA NITROGEN 19 mg/dL (7-21); CALCIUM 9.4 mg/dL (8.4-10.5); GFR NON-AFRICAN AMERICAN > 60
--- NOTE | 2018-06-02 11:50 | PN ---
DATE: 06/02/2018 SUBJECTIVE: The patient is in [facility] in [place], telemetry unit. He was admitted with dizziness, near syncopal episode. The patient has past history of normal pressure hydrocephalus, polycythemia. The patient also has history of hypertension. The patient is seen this morning. He does not complain of any dizziness yesterday. He has not been out to the bathroom or he has not walked in the room. We will request physical therapy and also do some followup studies like the electrocardiogram, Holter monitor and carotid Doppler. The patient's cerebrovascular study done in the past did not revealed any significant pathology. PHYSICAL EXAMINATION VITAL SIGNS: This morning his pulse is 60, blood pressure 144/74, respirations are 18, and O2 sat 95% on room air. HEENT: His head is normocephalic. NECK: Thyroid is not enlarged. JVP is flat. No lymphadenopathy. LUNGS: Clear. HEART: Normal sinus bradycardia. ABDOMEN: Soft. Liver and spleen not palpable. PENSION EXAMINER: The patient had no focal deficits noted. He does have symptoms of burning and discomfort in the legs. Clinically appears to be like peripheral neuropathy. ASSESSMENT AND PLAN: Dr. Oliver, the neurologist seen the patient and he concludes that the symptoms are related to neurovascular reasons. His blood work not repeated. His diet is heart-healthy diet. We will request physical therapy for the patient to see how he does ambulation and we will do the Holter, echo and carotid Doppler and we will followup. Marisel Manley MD
[2018-06-02 13:10] LABS: FOLATE 8.9 ng/mL
--- NOTE | 2018-06-02 15:00 | CP.PCM.APN ---
Subjective - Date & Time of Evaluation Date of Evaluation: 06/02/18 Time of Evaluation: 11:30 - Subjective Subjective: pt seen and examined at bedside, pt reports he feels better on antivert regimen, states he missed doses at home becuase he was unsure if the medication had or not. at this tome he denies dizziness, deneis n/v/ denies headache Review of Systems - Review of Systems All systems: reviewed and no additional remarkable complaints except Objective - Vital Signs/Intake and Output Vital Signs (last 24 hours): Temp Pulse Resp BP Pulse Ox 97.7 F 60 18 149/73 95 06/02/18 12:00 06/02/18 14:00 06/02/18 12:00 06/02/18 12:00 06/02/18 06:00 Intake and Output: 06/02/18 06/02/18 06:59 18:59 Intake Total 520 Output Total 1000 Balance -480 - Medications Medications: Current Medications Amlodipine Besylate (Norvasc) 5 mg PO DAILY [facility] Aspirin (Ecotrin) 81 mg PO DAILY [facility] Last Admin: 06/02/18 09:31 Dose: 81 mg Atorvastatin Calcium (Lipitor) 20 mg PO DIN [facility] Last Admin: 06/01/18 17:23 Dose: 20 mg Ezetimibe (Zetia) 10 mg PO DAILY [facility] Last Admin: 06/02/18 09:48 Dose: Not Given Gabapentin (Neurontin) 300 mg PO DAILY [facility]; Protocol Last Admin: 06/02/18 09:31 Dose: 300 mg Meclizine HCl (Antivert) 12.5 mg PO TID [facility] Last Admin: 06/02/18 14:12 Dose: 12.5 mg - Labs Labs: 06/01/18 11:11 06/02/18 06:10 PT 11.3 SECONDS (9.4-12.5) 06/01/18 11:11 INR 1.00 06/01/18 11:11 APTT 33.1 Seconds (26.9-38.3) 06/01/18 11:11 - Constitutional Appears: No Acute Distress - Eye Exam Eye Exam: Normal appearance Pupil Exam: NORMAL ACCOMODATION - ENT Exam ENT Exam: Normal Exam - Cardiovascular Exam Cardiovascular Exam: Bradycardia, +S1, +S2 Additional comments: hr 58-59 on tele - Back Exam Back Exam: Full ROM - Neurological Exam Neurological Exam: Alert, Awake Neuro motor strength exam: Left Upper Extremity: 5, Right Upper Extremity: 5, Left Lower Extremity: 5, Right Lower Extremity: 5 - Psychiatric Exam Psychiatric exam: Normal Affect - Skin Skin Exam: Dry, Intact Assessment and Plan - Assessment and Plan (Free Text) Plan: ITS Impressions Head CT 06/01/18 10:58 IMPRESSION: Stable ventricular dilatation. The entire system is dilated likely related to normal pressure hydrocephalus. No obstructing lesions identified. No acute intracranial abnormalities. Overall, no interval change. Abnormal Lab Results 06/02/18 06/02/18 06:10 08:30 Sodium 142 Potassium 4.2 Chloride 107 Carbon Dioxide 28 Anion Gap 11 BUN 19 Creatinine 1.1 Est GFR ( Amer) > 60 Est GFR (Non-Af Amer) > 60 Random Glucose 92 Calcium 9.4 Vitamin B12 267 Folate 8.[address] 06/01/18 10:58 IMPRESSION: Stable ventricular dilatation. The entire system is dilated likely related to normal pressure hydrocephalus. No obstructing lesions identified. No acute intracranial abnormalities. Overall, no interval change. ITS Impressions Head CT 06/01/18 10:58 IMPRESSION: Stable ventricular dilatation. The entire system is dilated likely related to normal pressure hydrocephalus. No obstructing lesions identified. No acute intracranial abnormalities. Overall, no interval change. 72 yr old male with pmh sig for vertigo, polythemia, normal pressure hydrocepahlus and htn admitted with c/o dizziness and nausea lapse in vertigo regimen per patient. pt was also found to be bradycardic and is now admitted with neuro eval and mgmt with holter, echo and carotid US as well as p.t eval pending. will follow diagnostic results. Will continue to follow clinical course luis felipe Evans, JASWANT,ENTRY LEV[employer] BU[employer]ER BPCI/TIC - BPCIA/TIC Educated pt/family on BPCIA/CIR/Med to Bed Programs: N/A Flyers given, including [facility] Beneficiary letter: N/A Pt/family verbalized understanding & agreed to program: N/A
--- NOTE | 2018-06-02 15:16 | US ---
PROCEDURE: Title carotid artery duplex ultrasound HISTORY: Carotid stenosis PHYSICIAN(S): Ashok Wu MD. TECHNIQUE: Duplex sonography and color-flow Doppler were used to evaluate the carotid bifurcations and limited segments of the vertebral arteries bilaterally. FINDINGS: There is mild to moderate smooth heterogeneous plaque with some shadowing noted at the carotid bifurcations bilaterally. The peak systolic velocity in the proximal right internal carotid artery is 82 cm/sec. This corresponds to a 20 to 39% proximal right ICA stenosis. Normal systolic velocities are noted in the proximal right external carotid artery. There is antegrade flow in the right vertebral artery. The peak systolic velocity in the proximal left internal carotid artery is 87cm/sec. This corresponds to a 20 to 39% proximal left ICA stenosis. Normal systolic velocities are noted in the proximal left external carotid artery. There is antegrade flow in the left vertebral artery. IMPRESSION: 1. Bilateral 20-39% proximal ICA stenoses. 2. Antegrade flow in both vertebral arteries.
[2018-06-03 05:47] VITALS: O2SAT 98
--- NOTE | 2018-06-03 07:56 | CP.PCM.PN ---
Subjective - Date & Time of Evaluation Date of Evaluation: 06/03/18 Time of Evaluation: 07:30 - Subjective Subjective: Patient is seen this morning. He is feeling better. He has not walked as of yet. Objective - Vital Signs/Intake and Output Vital Signs (last 24 hours): Temp Pulse Resp BP Pulse Ox 98 F 74 20 131/77 98 06/03/18 05:45 06/03/18 05:45 06/03/18 05:45 06/03/18 05:45 06/03/18 05:45 Intake and Output: 06/03/18 06/03/18 06:59 18:59 Intake Total 420 Output Total 700 Balance -280 - Medications Medications: Current Medications Amlodipine Besylate (Norvasc) 5 mg PO DAILY [facility] Aspirin (Ecotrin) 81 mg PO DAILY [facility] Last Admin: 06/02/18 09:31 Dose: 81 mg Atorvastatin Calcium (Lipitor) 20 mg PO DIN [facility] Last Admin: 06/02/18 17:27 Dose: 20 mg Ezetimibe (Zetia) 10 mg PO DAILY [facility] Last Admin: 06/02/18 17:27 Dose: 10 mg Gabapentin (Neurontin) 300 mg PO DAILY [facility]; Protocol Last Admin: 06/02/18 09:31 Dose: 300 mg Meclizine HCl (Antivert) 12.5 mg PO TID [facility] Last Admin: 06/02/18 17:27 Dose: 12.5 mg - Labs Labs: 06/01/18 11:11 06/02/18 06:10 PT 11.3 SECONDS (9.4-12.5) 06/01/18 11:11 INR 1.00 06/01/18 11:11 APTT 33.1 Seconds (26.9-38.3) 06/01/18 11:11 - Constitutional Appears: No Acute Distress - Head Exam Head Exam: ATRAUMATIC, NORMOCEPHALIC - Cardiovascular Exam Cardiovascular Exam: REGULAR RHYTHM, +S1, +S2 - GI/Abdominal Exam GI & Abdominal Exam: Soft, Normal Bowel Sounds. absent: Tenderness - Extremities Exam Extremities Exam: absent: Pedal Edema - Neurological Exam Neurological Exam: Alert, Awake, CN II-XII Intact, Oriented x3 Assessment and Plan - Assessment and Plan (Free Text) Assessment: Bradycardia/junctional rhythm Dizziness HTN Polycythemia Vera Plan: Patient is seen this morning. Beta-nadiya discontinued due to bradycardia and junctional rhythm. Holter monitor has been placed. Blood pressure controlled on Norvasc. Heart rate ranging between 56 and 94. Echocardiogram is pending. Neurology has seen patient for dizziness. continue Antivert. CT Head with no acute abnormalities. Carotid doppler shows 20-39% bilateral stenosis. Awaiting PT evaluation. If patient is able to walk without dizziness, he may be discharged later today after holter monitor is removed. Discussed with nurse.
[2018-06-03 12:31] VITALS: BP 122/79; RESP 18; TEMP 97.3
[2018-06-03 14:18] VITALS: PULSE 90
--- NOTE | 2018-06-03 16:49 | CARD ---
APPROVED REPORT Date of service: 06/03/2018 EXAM: Two-dimensional and M-mode echocardiogram with Doppler and color Doppler. INDICATION Hypertension/HCVD 2D DIMENSIONS Left Atrium (2D)4.0 (1.6-4.0cm)IVSd1.0 (0.7-1.1cm) LVDd5.6 (3.9-5.9cm)PWd1.1 (0.7-1.1cm) LVDs3.9 (2.5-4.0cm)FS (%) 30.2 % LVEF (%)56.9 (>50%) M-Mode DIMENSIONS Aortic Root3.40 (2.2-3.7cm)Aortic Cusp Exc.2.00 (1.5-2.0cm) Aortic Valve AoV Peak Imruiuyw138.0cm/Viktoriya Peak GR.8mmHg Mitral Valve MV E Huamfmej38.7cm/sMV A Vsafygmb83.8cm/sE/A ratio0.7 TDI Lateral E' Peak V7.90cm/sMedial E' Peak V4.48cm/sE/Lateral E'7.9 E/Medial E'14.0 Pulmonary Valve PV Peak Dznbmgvl52.7cm/sPV Peak Grad.2mmHg Tricuspid Valve TR Peak [id number]/sRAP [id number] Peak Gr.24mmHg [id number] LEFT VENTRICLE The left ventricle is normal size. There is normal left ventricular wall thickness. The left ventricular function is normal. The left ventricular ejection fraction is within the normal range. There is normal LV segmental wall motion. Transmitral Doppler flow pattern is Grade I-abnormal relaxation pattern. RIGHT VENTRICLE The right ventricle is normal size. There is normal right ventricular wall thickness. The right ventricular systolic function is normal. ATRIA The left atrium size is normal. The right atrium size is normal. AORTIC VALVE The aortic valve is not well visualized. No aortic regurgitation is present. There is no aortic valvular stenosis. MITRAL VALVE The mitral valve is not well visualized. Mitral regurgitation is trace. There is no mitral valve stenosis. TRICUSPID VALVE The tricuspid valve is normal in structure. There is mild pulmonary hypertension. PULMONIC VALVE The pulmonary valve is normal in structure. There is trace pulmonic valvular regurgitation. GREAT VESSELS The aortic root is normal in size. The IVC is normal in size and collapses >50% with inspiration. PERICARDIAL EFFUSION There is a trace pericardial effusion. <Conclusion> There is normal left ventricular wall thickness. The left ventricular function is normal. The left ventricular ejection fraction is within the normal range. There is normal LV segmental wall motion. Transmitral Doppler flow pattern is Grade I-abnormal relaxation pattern. Mitral regurgitation is trace. There is mild pulmonary hypertension.
== END 2018-06-03 18:15 | disposition home or self-care (01) | DRG 149 ==
LOC: ED 10:45 → ERH 12:35 → 2RNO 13:35 → OBSVTOIN 06-02 15:33
PROVIDERS: ADMIT Internal Medicine; ATTEND Internal Medicine
DX: R42 Dizziness and giddiness (principal); G91.2 (Idiopathic) normal pressure hydrocephalus; R00.1 Bradycardia, unspecified; E86.0 Dehydration; I10 Essential (primary) hypertension; G62.9 Polyneuropathy, unspecified; D45 Polycythemia vera; I65.23 Occlusion and stenosis of bilateral carotid arteries; R11.0 Nausea; Z85.46 Personal history of malignant neoplasm of prostate; Z79.82 Long term (current) use of aspirin